=== PATIENT | female | born 1930 | race Caucasian/White ===

== ENCOUNTER 2016-11-04 14:25 | Emergency (ER) | payer MEDICARE, OTHER ==
[~2016-11-04] VITALS: Ht 152.4 cm; Wt 64.4 kg
[~2016-11-04 14:25] MED LIST: AMLO2.5T PO; CHOL1CAP6 PO; METH2.5 PO; PROT40TA PO; VITA500C PO
[2016-11-04 14:26] VITALS: BP 151/76; PULSE 71; RESP 16; TEMP 98; O2SAT 95
[2016-11-04] MEDS ORDERED: OMEP20TA PO (14:42)
[2016-11-04] MEDS ORDERED: TRAM50TA PO (14:42)
[2016-11-04] MEDS ORDERED: AMLO2.5T PO (14:42)
[2016-11-04] MEDS ORDERED: METH2.5T PO (14:42)
[2016-11-04] MEDS ORDERED: LISI-519 PO (14:42)
--- NOTE | 2016-11-04 14:52 | PD ---
HPI . Fever Chief Complaint: Fever Time Seen by Provider: 14:37 Travel History International Travel<30 days: No Contact w/Intl Traveler<30days: No Traveled to known affect area: No History of Present Illness HPI Patient is brought here by her daughter with a chief complaint of fever. She was actually sent here from an urgent care for further evaluation. The patient and her daughter report that she became ill 4 days ago. She had a couple of episodes of emesis and felt generally poorly. She was bedridden for a day. She slowly got better and was back to normal within a couple of days. However, her symptoms recurred last night. She had a MAXIMUM TEMPERATURE last night of 103. She had a couple of episodes of emesis last night. She also reports a cough which is productive of sputum. She states that she feels pretty well today. She is not sure what may have exacerbated or relieved her symptoms. 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 ankle, removed) High Cholesterol: Yes Chest Pain: No Congestive Heart Failure: No COPD: No Cerebrovascular Accident: No Diabetes: No Diminished Hearing: Yes Endocrine: No Gastrointestinal Disorders: Yes (colitis) GERD: Yes Genitourinary: No Headaches: Yes Hiatal Hernia: Yes (repaired) Hypertension: Yes Immune Disorder: No Musculoskeletal: Yes (back pain) Neurologic: No Psychiatric: Yes Reproductive: No Respiratory: No Integumentary: Yes Migraines: No Renal Failure: No Seizures: No Sickle Cell Disease: No Thyroid Disease: No Ulcer: No ?: Not LMP: [employer] Past Surgical History Abdominal Surgery: Yes (ESOPHAGUS/DIAPHRAGM) AICD: No Arteriovenous Shunt: No Cardiac Surgery: No Ear Surgery: No Genitourinary Surgery: No Gynecologic Surgery: Yes (HYSTERECTOMY) Hysterectomy: Yes Insulin Pump: No Joint Replacement: No Oral Surgery: Yes (TONSILLECTOMY) Pacemaker: No Thoracic Surgery: No Other Surgery: Yes (diaphragm repair, l inguinal hernia) Social History Alcohol Use: No Tobacco Use: No Substance Use: No Allergies-Medications (Allergen,Severity, Reaction): Coded Allergies: Benazepril (Verified Allergy, Severe, 11/04/16) Sulfa (Verified Allergy, Severe, 11/04/16) Reported Meds & Prescriptions Reported Meds & Active Scripts Active Reported Tramadol (Tramadol HCl) 50 Mg Tab 50 Mg PO Q4H PRN Methotrexate 2.5 Mg Tab 2.5 Mg PO Q7D PRN Omeprazole 20 Mg Tab 20 Mg PO DAILY Amlodipine (Amlodipine Besylate) 2.5 Mg Tab 2.5 Mg PO DAILY Lisinopril 5 Mg Tab 5 Mg PO DAILY Review of Systems Except as stated in HPI: all other systems reviewed are Neg General / Constitutional: Positive: Fever, Chills HENT: No: Sore Throat, Rhinorrhea, Congestion Respiratory: Positive: Cough, No: Shortness of Breath Gastrointestinal: Positive: Nausea, Vomiting Genitourinary: No: Urgency, Frequency, Dysuria Physical Exam Narrative GENERAL: This is an elderly lady who is lucid but hard of hearing. SKIN: Warm and dry. HEAD: Atraumatic. Normocephalic. EYES: Pupils equal and round. Extraocular movements are intact. ENT: No nasal bleeding or discharge. Mucous membranes pink and moist. NECK: Trachea midline. Neck is supple. CARDIOVASCULAR: Regular rate and rhythm. Heart sounds are normal. RESPIRATORY: No accessory muscle use. Lungs sound clear with full air movement throughout. GASTROINTESTINAL: Abdomen soft, non-tender, nondistended. MUSCULOSKELETAL: No obvious deformities. No edema. NEUROLOGICAL: Awake and alert. No obvious cranial nerve deficits. Motor grossly within normal limits. Normal speech. PSYCHIATRIC: Appropriate mood and affect; insight and judgment normal. Data Data Last Documented VS Vital Signs Date Time Temp Pulse Resp B/P Pulse Ox O2 Delivery O2 Flow Rate FiO2 11/04/16 14:26 98.0 71 16 151/76 95 Orders Complete Blood Count With Diff (11/04/16 14:37) Comprehensive Metabolic Panel (11/04/16 14:37) Lactic Acid Sepsis Protocol (11/04/16 14:37) Urinalysis - C+S If Indicated (11/04/16 14:37) Blood Culture (11/04/16 14:37) Chest, Single Ap (11/04/16 14:37) Iv Access Insert/Monitor (11/04/16 14:37) Cath For Specimen (11/04/16 14:37) Urine Culture (11/04/16 15:10) Ceftriaxone Inj (Rocephin Inj) (11/04/16 15:45) Labs Laboratory Tests Test 11/04/16 15:10 White Blood Count 9.0 TH/MM3 Red Blood Count 3.86 MIL/MM3 Hemoglobin 12.1 GM/DL Hematocrit 37.0 % Mean Corpuscular Volume 95.8 FL Mean Corpuscular Hemoglobin 31.3 PG Mean Corpuscular Hemoglobin 32.7 % Concent Red Cell Distribution Width 15.3 % Platelet Count 273 TH/MM3 Mean Platelet Volume 8.3 FL Neutrophils (%) (Auto) 69.4 % Lymphocytes (%) (Auto) 26.0 % Monocytes (%) (Auto) 2.5 % Eosinophils (%) (Auto) 1.6 % Basophils (%) (Auto) 0.5 % Neutrophils # (Auto) 6.4 TH/MM3 Lymphocytes # (Auto) 2.3 TH/MM3 Monocytes # (Auto) 0.2 TH/MM3 Eosinophils # (Auto) 0.1 TH/MM3 Basophils # (Auto) 0.0 TH/MM3 CBC Comment DIFF FINAL Differential Comment Urine Collection Type CLEAN CATCH Urine Color YELLOW Urine Turbidity CLEAR Urine pH 5.5 Urine Specific [place] 1.010 Urine Protein TRACE mg/dL Urine Glucose (UA) NEG mg/dL Urine Ketones TRACE mg/dL Urine Occult Blood MOD Urine Nitrite NEG Urine Bilirubin NEG Urine Leukocyte Esterase SMALL Urine RBC 15-19 /hpf Urine WBC 25-49 /hpf Urine WBC Clumps FEW Urine Squamous Epithelial 6-8 /hpf Cells Urine Renal Epithelial Cells 6-8 /hpf Urine Bacteria FEW /hpf Microscopic Urinalysis Comment CULTURE INDICATED Urine Collection Time 15:10 Sodium Level 139 MEQ/L Potassium Level 3.8 MEQ/L Chloride Level 105 MEQ/L Carbon Dioxide Level 26.7 MEQ/L Anion Gap 7 MEQ/L Blood Urea Nitrogen 12 MG/DL Creatinine 0.59 MG/DL Estimat Glomerular Filtration 97 ML/MIN Rate Random Glucose 107 MG/DL Lactic Acid Level 1.5 mmol/L Calcium Level 9.5 MG/DL Total Bilirubin 1.6 MG/DL Aspartate Amino Transf 28 U/L (AST/SGOT) Alanine Aminotransferase 21 U/L (ALT/SGPT) Alkaline Phosphatase 86 U/L Total Protein 8.4 GM/DL Albumin 3.9 GM/DL [facility] Medical Decision Making Medical Screen Exam Complete: Yes Emergency Medical Condition: Yes Medical Record Reviewed: Yes (past medical history is significant for hypertension and rheumatoid arthritis.) Differential Diagnosis Differential diagnosis of fever includes but is not limited to viral illness, strep throat, otitis media, pneumonia, sepsis, UTI Narrative Course This is a patient who is immunocompromised due to methotrexate therapy. She presents with intermittent fevers over the last 4 days. Septic workup has been ordered. CBC & BMP Diagram 11/04/16 15:10 UA is positive for infection. Lactic acid is normal. Patient has been treated with Rocephin. She will be discharged on Macrobid. Diagnosis Primary Impression: Urinary tract infection Qualified Code: N30.00 - Acute cystitis without hematuria Patient Instructions: General Instructions, Urinary Tract Infection in Women ( [place]) Med/Other Pt SpecificInfo: Prescription(s) given Scripts Nitrofurantoin Monohydrate Macrocrystals (Macrobid)100 Mg [id number] Mg PO BID 10 Days Ref 0 Prov:Ashleigh Huggins MD 11/04/16 Disposition: 01 DISCHARGE HOME Condition: Stable Ashleigh Huggins MD November 04, 2016 14:51
[2016-11-04 15:24] LABS: GLUCOSE,URINE NEG (NEG); KETONE, URINE TRACE mg/dL (NEG); NITRITE,URINE NEG (NEG); PH, URINE 5.5 (5.0-8.5)
[2016-11-04 15:30] LABS: BLOOD, URINE MOD (NEG); METHOD OF COLLECTION CLEAN CATCH
[2016-11-04 15:31] LABS: RBC, URINE 15-19 /hpf (0-3); URINE COLOR YELLOW (YELLW/STRAW)
[2016-11-04 15:33] LABS: BACTERIA, URINE FEW /hpf; CHLORIDE 105 MEQ/L (98-107); COMMENT (UR) CULTURE INDICATED; CULTURE IF INDICATED CULTURE INDICATED; POTASSIUM 3.8 MEQ/L (3.5-5.1); SODIUM (NA) 139 MEQ/L (136-145)
[2016-11-04 15:37] LABS: ANION GAP 7 MEQ/L (5-15); BICARBONATE 26.7 MEQ/L (21.0-32.0); BLOOD UREA NITROGEN 12 MG/DL (7-18)
[2016-11-04 15:39] LABS: AUTOMATED NEUTROPHIL # 6.4 TH/MM3 (1.8-7.7); BASOPHIL % 0.5 % (0.0-2.0); EOSINOPHIL # 0.1 TH/MM3 (0-0.4); EOSINOPHIL % 1.6 % (0.0-4.0); HEMO FLAGS DIFF FINAL; LYMPHOCYTE # 2.3 TH/MM3 (1.0-4.8); MEAN CELL VOLUME 95.8 FL (80.0-100.0); MEAN CORPUSCULAR HEMOGLOBIN 31.3 PG (27.0-34.0); MEAN CORPUSCULAR HGB CONC 32.7 % (32.0-36.0); MONO % 2.5 % (0.0-8.0); NEUT % 69.4 % (16.0-70.0); PLATELET COUNT 273 TH/MM3 (150-450); RED BLOOD COUNT 3.86 MIL/MM3 (4.00-5.30); RED CELL DISTRIBUTION WIDTH 15.3 % (11.6-17.2)
[2016-11-04 15:40] LABS: ALT (GPT) 21 U/L (10-53); AST (GOT) 28 U/L (15-37); GLOMERULAR FILTRATION RATE 97 ML/MIN (>89)
--- NOTE | 2016-11-04 15:40 | RADHPO ---
EXAM DATE/TIME: 11/04/2016 15:19 [place] COMPARISON: No previous studies available for comparison. INDICATIONS : Cough, fever MEDICAL HISTORY : None. SURGICAL HISTORY : None. ENCOUNTER: Initial ACUITY: 4 - 6 days PAIN SCORE: 0/10 LOCATION: Bilateral chest FINDINGS: The heart is enlarged. There is mild interstitial edema present. There is marked vascular calcifica tions noted. There is a 1 cm nodule laterally in the left lung. Minimal parenchymal opacity is seen in the left b ase. CONCLUSION: 1. Cardiomegaly and mild congestive failure with minimal parenchymal changes left base. 2. Small nodule left mid lung. Santiago Blevins MD FACR on November 04, 2016 at 15:31 Board Certified Radiologist. This report was verified electronically.
[2016-11-04 15:42] LABS: TOTAL BILIRUBIN ADULT 1.6 MG/DL (0.2-1.0)
[2016-11-04 15:43] LABS: ALKALINE PHOSPHATASE 86 U/L (45-117)
[2016-11-04] MEDS ORDERED: cefTRIAXone INJ 1,000 MG in SODIUM CHLORIDE 0.9% INJ 100 ML IV ONE (15:45)
[2016-11-04] MEDS ORDERED: MACR100C2 PO (16:01)
[2016-11-04 16:09] VITALS: BP 132/75
== END 2016-11-04 16:27 | disposition home or self-care (01) ==
LOC: PHED 14:25
DX: N30.00 Acute cystitis without hematuria (principal); B96.89 Other specified bacterial agents as the cause of diseases classified elsewhere; I10 Essential (primary) hypertension; E78.00 Pure hypercholesterolemia, unspecified; L40.9 Psoriasis, unspecified
CPT/HCPCS: 71010; 80053; 81001; 83605; 85025; 87040; 87086; 96374; 99284; J0696

== ENCOUNTER → 2017-02-13 | Outpatient (CLI) | payer OTHER ==
[~2017-02-13] MED LIST changes: -CHOL1CAP6 PO; +LISI-519 PO; +MACR100C2 PO; -METH2.5 PO; +METH2.5T PO; +OMEP20TA PO; -PROT40TA PO; +TRAM50TA PO; -VITA500C PO
[2017-02-13 09:09] LABS: BLOOD GAS BASE EXCESS 0.6 mmol/L (-2-2); BLOOD GAS CARBOXYHEMOGLOBIN 1.6 % (0-4); BLOOD GAS HCO3 24 mmol/L (22-26); BLOOD GAS METHEMOGLOBIN 1.1 % (0-2); BLOOD GAS O2 HGB SATURATION 94 % (90-100); BLOOD GAS OXYGEN CONTENT 17.5 Vol % (12.0-20.0); BLOOD GAS PCO2 34 mmHG (38-42); BLOOD GAS PO2 85 mmHG (61-120); BLOOD GAS TOTAL HGB 13.1 G/DL (12.0-16.0); CRITICAL VALUE NO; DRAW SITE RT RADIAL; FIO2 21 %; NUMBER OF ARTERIAL PUNCTURES 1; STAT NO; TEMP CORR TO 98.6; ULNAR PULSE PRESENT
--- NOTE | 2017-02-16 08:46 | RSPPFT ---
DATE OF PROCEDURE: 02/13/17 COMMENTS: Spirometry shows FVC of 2.2 at 105% of predicted, FEV1 of 1.5 at 105%, FEV1/FVC ratio is decreased. Flow is normal at FEF 25, FEF 50, FEF 75 and FEF 25-75. There is no response after bronchodilator treatment. Lung volumes show residual volume is increased. TLC is increased. Diffusion capacity is mildly decreased. Flow volume loop indicates an obstructive pattern. Room air arterial blood gases show pH of 7.4, PCO2 of 34, PO2 of 85, O2 Saturation at 98%. 6-minute walk test shows no de-saturation. IMPRESSION: 1. Mild small airways obstructive lung disease. 2. No response after bronchodilation. 3. Lung volumes show hyperinflation and air trapping. 4. Mild decrease in diffusion capacity. 5. Blood gases shows normal oxygenation. 6. No de-saturation with ambulation.
== END ==
LOC: PHRSP 08:23
PROVIDERS: ATTEND Specialist
DX: J44.9 Chronic obstructive pulmonary disease, unspecified (principal)
CPT/HCPCS: 36600; 82805; 94060; 94620; 94726; 94729